=== PATIENT | male | born 1970 | race Hispanic/Latino ===

== ENCOUNTER 2023-10-22 19:29 | Emergency (ER) | payer OTHER, BC, SELFPAY ==
[2023-10-22 19:47] VITALS: BP 132/77
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
[2023-10-22 23:25] LABS: Urine Albumin Negative (Neg - Trace); Urine Bilirubin Negative (Negative); Urine Character Clear (Clear); Urine Color Yellow; Urine Glucose Negative (Negative); Urine Ketone Trace (Negative); Urine Leukocyte Trace (Negative); Urine Nitrite Negative (Negative); Urine Occult Blood Negative (Negative); Urine Urobilinogen Negative (Neg - 1+)
[2023-10-22 23:37] LABS: Urine Red Blood Cell 0-2 /HPF (0-2); Urine Squamous Cell 26-30 /LPF (Few); Urine White Cell 0-2 /HPF (0-5)
[2023-10-22 23:56] VITALS: BP 134/76
[2023-10-22 23:57] VITALS: BMI 23.8
[2023-10-22 23:59] VITALS: BP 134/76
== END 2023-10-23 | disposition home or self-care (01) ==
LOC: EMR 19:29
PROVIDERS: EMERGENCY PHYSICIAN Student in an Organized Health Care Education/Training Program
DX: M25.511 Pain in right shoulder (principal); M25.562 Pain in left knee; M25.552 Pain in left hip; M79.18 Myalgia, other site; V43.51XA Car driver injured in collision with sport utility vehicle in traffic accident, initial encounter; R03.0 Elevated blood-pressure reading, without diagnosis of hypertension
CPT/HCPCS: 99284; 71046; 73030; 73502; 73564; 81003; 81015